=== PATIENT | male | born 1930 | race Caucasian/White ===

== ENCOUNTER 2017-08-27 13:03 | Inpatient (IN) | payer MEDICARE, BC ==
[~2017-08-27] VITALS: Ht 182.9 cm; Wt 81.3 kg
[2017-08-27 13:03] VITALS: BP 193/93; PULSE 56; RESP 16; TEMP 98.2; O2SAT 95
[~2017-08-27 13:03] MED LIST: DOCU1CAP39 PO; FERR324T4 PO; GABA600T PO; LORTA5 PO; POLY17S PO; VITA400C28 PO; VITA500T83 PO; WARF4 PO; Z.0.CPM
[2017-08-27] MEDS ORDERED: SODIUM CHLORIDE 0.9% FLUSH 10 ML FLUSH IVF PRN (13:15)
--- NOTE | 2017-08-27 13:21 | PD ---
HPI Chief Complaint: stroke alert Time Seen by Provider: 13:07 Travel History International Travel<30 days: No Contact w/Intl Traveler<30days: No Traveled to known affect area: No History of Present Illness HPI 87-year-old male brought in by ambulance as a stroke alert. According to EMS, the patient lives at [place] in the independent living side with his . At around 11:45 PM his noted that the patient had right-sided facial droop , right arm and leg weakness. She brought him back to their room, and 911 was called. EMS noted a right facial droop and right upper and lower extremity weakness, and noted that while in route his symptoms appeared to be resolving. Blood pressure was 180/100. BGL was within normal limits. Upon arrival to the emergency department the patient is awake and alert. He has a mild right facial droop. He is moving all of his extremities. He is denying any physical complaints other than numbness sensation in bilateral hands and feet. PFSH Past Medical History Arthritis: Yes Asthma: No Heart Rhythm Problems: No Cancer: No Cardiovascular Problems: Yes High Cholesterol: No Chemotherapy: No Chest Pain: No Congestive Heart Failure: No COPD: No Cerebrovascular Accident: No Diabetes: No Endocrine: No GERD: No Genitourinary: Yes (POST ANESTHESIA PROB. URINATING) Hepatitis: No Hiatal Hernia: No Immune Disorder: No Kidney Stones: No Musculoskeletal: Yes (ARTHRITIS, LEFT TKR/REMOVAL, ) Neurologic: Yes (NEUROPATHY LEGS, NORMAL PRESSURE HYDROCEPHALUS) Psychiatric: No Reproductive: No Respiratory: Yes (HX BRONCHITIS (2013)) Migraines: No Radiation Therapy: No Renal Failure: No Seizures: No Sickle Cell Disease: No Sleep Apnea: No Thyroid Disease: No Ulcer: No Past Surgical History Abdominal Surgery: Yes (APPY , ING. HERNIA REP.) AICD: No Arteriovenous Shunt: No Body Medical Devices: RIGHT HIP HARDWARE Cardiac Surgery: No Ear Surgery: No Endocrine Surgery: No Eye Surgery: Yes (JUANITO. CATARACT EXTRACT., RIGHT RETINAL REP.) Genitourinary Surgery: Yes (TURP) Gynecologic Surgery: No Insulin Pump: No Joint Replacement: Yes (RIGHT KNEE) Oral Surgery: Yes (T & A) Pacemaker: No Thoracic Surgery: No Social History Substance Use: No Allergies-Medications (Allergen,Severity, Reaction): Coded Allergies: No Known Allergies (Unverified , 10/02/14) Reported Meds & Prescriptions Reported Meds & Active Scripts Active Review of Systems Except as stated in HPI: all other systems reviewed are Neg Physical Exam Narrative GENERAL: Well-developed, well-nourished, awake, alert, GCS 15, no apparent distress. SKIN: Focused skin assessment warm/dry. HEAD: Atraumatic. Normocephalic. EYES: Pupils equal and round. No scleral icterus. No injection or drainage. ENT: Mucous membranes pink and moist. NECK: Trachea midline. No JVD. CARDIOVASCULAR: Regular rate and rhythm. No murmur appreciated. RESPIRATORY: No accessory muscle use. Clear to auscultation. Breath sounds equal bilaterally. GASTROINTESTINAL: Abdomen soft, non-tender, nondistended. Hepatic and splenic margins not palpable. MUSCULOSKELETAL: No obvious deformities. No clubbing. No cyanosis. No edema. NEUROLOGICAL: Awake and alert. Mild right facial droop, all other cranial nerves are intact. Motor grossly within normal limits. Normal speech. No focal deficit. No pronator drift. PSYCHIATRIC: Appropriate mood and affect; insight and judgment normal. Data Data Last Documented VS Vital Signs Date Time Temp Pulse Resp B/P (MAP) Pulse Ox O2 Delivery O2 Flow Rate FiO2 08/27/17 13:32 97 Room Air 08/27/17 13:03 98.2 56 16 193/93 (126) Orders Orders Electrocardiogram (08/27/17 13:07) Prothrombin Time / Inr (Pt) (08/27/17 13:07) Act Partial Throm Time (Ptt) (08/27/17 13:07) Complete Blood Count With Diff (08/27/17 13:07) Comprehensive Metabolic Panel (08/27/17 13:07) Urinalysis - C+S If Indicated (08/27/17 13:07) Ct Brain W/O Iv Contrast(Rout) (08/27/17 13:07) Chest, Single Ap (08/27/17 13:07) Ecg Monitoring (08/27/17 13:07) Iv Access Insert/Monitor (08/27/17 13:07) Oximetry (08/27/17 13:07) Sodium Chloride 0.9% Flush (Ns Flush) (08/27/17 13:15) I-Stat Creatinine (08/27/17 13:10) I-Stat Profile (08/27/17 13:10) Labs Laboratory Tests Test 08/27/17 13:10 White Blood Count 6.1 TH/MM3 Red Blood Count 3.75 MIL/MM3 Hemoglobin 12.3 GM/DL Bedside Hemoglobin 12.6 G/DL Hematocrit 36.9 % Bedside Hematocrit 37.0 % Mean Corpuscular Volume 98.4 FL Mean Corpuscular Hemoglobin 32.9 PG Mean Corpuscular Hemoglobin Concent 33.4 % Red Cell Distribution Width 13.2 % Platelet Count 184 TH/MM3 Mean Platelet Volume 8.2 FL Neutrophils (%) (Auto) 72.6 % Lymphocytes (%) (Auto) 16.6 % Monocytes (%) (Auto) 9.0 % Eosinophils (%) (Auto) 1.6 % Basophils (%) (Auto) 0.2 % Neutrophils # (Auto) 4.4 TH/MM3 Lymphocytes # (Auto) 1.0 TH/MM3 Monocytes # (Auto) 0.5 TH/MM3 Eosinophils # (Auto) 0.1 TH/MM3 Basophils # (Auto) 0.0 TH/MM3 CBC Comment DIFF FINAL Differential Comment Prothrombin Time 11.4 SEC Prothromb Time International Ratio 1.0 RATIO Activated Partial Thromboplast Time 26.8 SEC Bedside Sodium 137 MMOL/L Blood Urea Nitrogen 14 MG/DL Creatinine 0.77 MG/DL Random Glucose 105 MG/DL Total Protein 7.2 GM/DL Albumin 3.7 GM/DL Calcium Level 8.9 MG/DL Alkaline Phosphatase 60 U/L Aspartate Amino Transf (AST/SGOT) 21 U/L Alanine Aminotransferase (ALT/SGPT) 22 U/L Total Bilirubin 0.4 MG/DL Sodium Level 136 MEQ/L Potassium Level 4.2 MEQ/L Chloride Level 101 MEQ/L Carbon Dioxide Level 29.8 MEQ/L Bedside Potassium 4.3 MMOL/L Bedside Chloride 96 MMOL/L Anion Gap 5 MEQ/L Bedside Blood Urea Nitrogen 14 MG/DL Bedside Creatinine 0.8 MG/DL Estimat Glomerular Filtration Rate 95 ML/MIN Bedside Glucose 109 MG/DL [facility] Medical Decision Making Medical Screen Exam Complete: Yes Emergency Medical Condition: Yes Differential Diagnosis CVA, TIA, metabolic abnormality, ICH Sachin Hinson MD Aug 27, 2017 13:21
[2017-08-27 13:24] LABS: AUTOMATED NEUTROPHIL # 4.4 TH/MM3 (1.8-7.7); BASOPHIL % 0.2 % (0.0-2.0); EOSINOPHIL # 0.1 TH/MM3 (0-0.4); EOSINOPHIL % 1.6 % (0.0-4.0); HEMATOCRIT 36.9 % (39.0-51.0); HEMO FLAGS DIFF FINAL; I-STAT POTASSIUM 4.3 MMOL/L (3.5-4.9); LYMPH % 16.6 % (9.0-44.0); MEAN CELL VOLUME 98.4 FL (80.0-100.0); MEAN CORPUSCULAR HEMOGLOBIN 32.9 PG (27.0-34.0); MEAN CORPUSCULAR HGB CONC 33.4 % (32.0-36.0); NEUT % 72.6 % (16.0-70.0); PLATELET COUNT 184 TH/MM3 (150-450); RED BLOOD COUNT 3.75 MIL/MM3 (4.50-5.90); RED CELL DISTRIBUTION WIDTH 13.2 % (11.6-17.2); WHITE BLOOD COUNT 6.1 TH/MM3 (4.0-11.0)
[2017-08-27 13:32] VITALS: O2SAT 97
[2017-08-27 13:33] LABS: APTT (PATIENT) 26.8 SEC (24.3-30.1); PROTHROMBIN TIME - PATIENT 11.4 SEC (9.8-11.6)
--- NOTE | 2017-08-27 13:34 | RADRPT ---
EXAM DATE/TIME: 08/27/2017 13:16 [facility] COMPARISON: No previous studies available for comparison. INDICATIONS : Stroke alert; right side facial droop, slurred speech. RADIATION DOSE: 45.50 CTDIvol (mGy) This report was called by Dr. Pandey to at 1: 30 PM on 08/27/17. MEDICAL HISTORY : Hypertension. Hydrocephalus. SURGICAL HISTORY : Shunt in brain. ENCOUNTER: Initial ACUITY: 1 day PAIN SCALE: 0/10 LOCATION: cranial TECHNIQUE: Multiple contiguous axial images were obtained of the head. Using automated exposure control and adj ustment of the mA and/or kV according to patient size, radiation dose was kept as low as reasonably a chievable to obtain optimal diagnostic quality images. DICOM format image data is available electro nically for review and comparison. FINDINGS: There is no acute infarct, acute hemorrhage, midline shift or extra axial fluid collections. A right frontal ventriculostomy shunt has its tip in the expected region of the junction of the right lateral ventricle and third ventricle. The ventricles are dilated suggesting hydrocephalus or central cerebr al atrophy. Mild to moderate periventricular white matter small vessel ischemic changes are noted carolann aterally. CONCLUSION: 1. No acute infarct, acute hemorrhage, mass effect, midline shift or extra-axial fluid collections. 2. Ventriculomegaly suggesting hydrocephalus or central cerebral atrophy. 3. Mild to moderate periventricular white matter small vessel ischemic changes bilaterally. Dany Pandey MD on August 27, 2017 at 13:27 Board Certified Radiologist. This report was verified electronically.
[2017-08-27 13:40] LABS: ALT (GPT) 22 U/L (12-78); ANION GAP 5 MEQ/L (5-15); AST (GOT) 21 U/L (15-37); BICARBONATE 29.8 MEQ/L (21.0-32.0); BLOOD UREA NITROGEN 14 MG/DL (7-18); CHLORIDE 101 MEQ/L (98-107); GLOMERULAR FILTRATION RATE 95 ML/MIN (>89); POTASSIUM 4.2 MEQ/L (3.5-5.1); SODIUM (NA) 136 MEQ/L (136-145)
[2017-08-27 13:42] LABS: ALKALINE PHOSPHATASE 60 U/L (45-117); TOTAL BILIRUBIN ADULT 0.4 MG/DL (0.2-1.0)
--- NOTE | 2017-08-27 13:42 | PD ---
HPI Chief Complaint: Stroke Alert Time Seen by Provider: 13:07 Travel History International Travel<30 days: No Contact w/Intl Traveler<30days: No Traveled to known affect area: No History of Present Illness HPI 87-year-old male brought in by ambulance as a stroke alert. According to EMS, the patient lives at [place] in the independent living side with his . At around 11:45 PM his noted that the patient had right-sided facial droop , right arm and leg weakness. She brought him back to their room, and 911 was called. EMS noted a right facial droop and right upper and lower extremity weakness, and noted that while in route his symptoms appeared to be resolving. Blood pressure was 180/100. BGL was within normal limits. Upon arrival to the emergency department the patient is awake and alert. He has a mild right facial droop. He is moving all of his extremities. He is denying any physical complaints other than numbness sensation in bilateral hands and feet. PFSH Past Medical History Arthritis: Yes Asthma: No Heart Rhythm Problems: No Cancer: No Cardiovascular Problems: Yes High Cholesterol: No Chemotherapy: No Chest Pain: No Congestive Heart Failure: No COPD: No Cerebrovascular Accident: No Diabetes: No Endocrine: No GERD: No Genitourinary: Yes (POST ANESTHESIA PROB. URINATING) Hepatitis: No Hiatal Hernia: No Immune Disorder: No Kidney Stones: No Musculoskeletal: Yes (ARTHRITIS, LEFT TKR/REMOVAL, ) Neurologic: Yes (NEUROPATHY LEGS, NORMAL PRESSURE HYDROCEPHALUS) Psychiatric: No Reproductive: No Respiratory: Yes (HX BRONCHITIS (2013)) Migraines: No Radiation Therapy: No Renal Failure: No Seizures: No Sickle Cell Disease: No Sleep Apnea: No Thyroid Disease: No Ulcer: No Past Surgical History Abdominal Surgery: Yes (APPY , ING. HERNIA REP.) AICD: No Arteriovenous Shunt: No Body Medical Devices: RIGHT HIP HARDWARE Cardiac Surgery: No Ear Surgery: No Endocrine Surgery: No Eye Surgery: Yes (JUANITO. CATARACT EXTRACT., RIGHT RETINAL REP.) Genitourinary Surgery: Yes (TURP) Gynecologic Surgery: No Insulin Pump: No Joint Replacement: Yes (RIGHT KNEE) Oral Surgery: Yes (T & A) Pacemaker: No Thoracic Surgery: No Social History Tobacco Use: No (former smoker) Substance Use: No Allergies-Medications (Allergen,Severity, Reaction): Coded Allergies: No Known Allergies (Unverified , 10/02/14) Reported Meds & Prescriptions Reported Meds & Active Scripts Active Reported [Eye Drops] 1 Drop RIGHT EYE DAILY Risedronate 150 Mg Tab 150 Mg PO Q30D Gabapentin 600 Mg Tab 600 Mg PO BID Review of Systems Except as stated in HPI: all other systems reviewed are Neg Physical Exam Narrative GENERAL: Well-developed, well-nourished, awake, alert, GCS 15, no apparent distress. SKIN: Focused skin assessment warm/dry. HEAD: Atraumatic. Normocephalic. EYES: Pupils equal and round. No scleral icterus. No injection or drainage. ENT: Mucous membranes pink and moist. NECK: Trachea midline. No JVD. CARDIOVASCULAR: Regular rate and rhythm. No murmur appreciated. RESPIRATORY: No accessory muscle use. Clear to auscultation. Breath sounds equal bilaterally. GASTROINTESTINAL: Abdomen soft, non-tender, nondistended. Hepatic and splenic margins not palpable. MUSCULOSKELETAL: No obvious deformities. No clubbing. No cyanosis. No edema. NEUROLOGICAL: Awake and alert. Mild right facial droop, all other cranial nerves are intact. Motor grossly within normal limits. Normal speech. No focal deficit. No pronator drift. PSYCHIATRIC: Appropriate mood and affect; insight and judgment normal. Data Data Last Documented VS Vital Signs Date Time Temp Pulse Resp B/P (MAP) Pulse Ox O2 Delivery O2 Flow Rate FiO2 08/27/17 13:32 97 Room Air 08/27/17 13:03 98.2 56 16 193/93 (126) Orders Orders Electrocardiogram (08/27/17 13:07) Prothrombin Time / Inr (Pt) (08/27/17 13:07) Act Partial Throm Time (Ptt) (08/27/17 13:07) Complete Blood Count With Diff (08/27/17 13:07) Comprehensive Metabolic Panel (08/27/17 13:07) Urinalysis - C+S If Indicated (08/27/17 13:07) Ct Brain W/O Iv Contrast(Rout) (08/27/17 13:07) Chest, Single Ap (08/27/17 13:07) Ecg Monitoring (08/27/17 13:07) Iv Access Insert/Monitor (08/27/17 13:07) Oximetry (08/27/17 13:07) Sodium Chloride 0.9% Flush (Ns Flush) (08/27/17 13:15) I-Stat Creatinine (08/27/17 13:10) I-Stat Profile (08/27/17 13:10) Aspirin Ec (Ecotrin Ec) (08/27/17 14:00) Admit Order (Ed Use Only) (08/27/17 14:39) Labs Laboratory Tests Test 08/27/17 13:10 White Blood Count 6.1 TH/MM3 Red Blood Count 3.75 MIL/MM3 Hemoglobin 12.3 GM/DL Bedside Hemoglobin 12.6 G/DL Hematocrit 36.9 % Bedside Hematocrit 37.0 % Mean Corpuscular Volume 98.4 FL Mean Corpuscular Hemoglobin 32.9 PG Mean Corpuscular Hemoglobin Concent 33.4 % Red Cell Distribution Width 13.2 % Platelet Count 184 TH/MM3 Mean Platelet Volume 8.2 FL Neutrophils (%) (Auto) 72.6 % Lymphocytes (%) (Auto) 16.6 % Monocytes (%) (Auto) 9.0 % Eosinophils (%) (Auto) 1.6 % Basophils (%) (Auto) 0.2 % Neutrophils # (Auto) 4.4 TH/MM3 Lymphocytes # (Auto) 1.0 TH/MM3 Monocytes # (Auto) 0.5 TH/MM3 Eosinophils # (Auto) 0.1 TH/MM3 Basophils # (Auto) 0.0 TH/MM3 CBC Comment DIFF FINAL Differential Comment Prothrombin Time 11.4 SEC Prothromb Time International Ratio 1.0 RATIO Activated Partial Thromboplast Time 26.8 SEC Bedside Sodium 137 MMOL/L Blood Urea Nitrogen 14 MG/DL Creatinine 0.77 MG/DL Random Glucose 105 MG/DL Total Protein 7.2 GM/DL Albumin 3.7 GM/DL Calcium Level 8.9 MG/DL Alkaline Phosphatase 60 U/L Aspartate Amino Transf (AST/SGOT) 21 U/L Alanine Aminotransferase (ALT/SGPT) 22 U/L Total Bilirubin 0.4 MG/DL Sodium Level 136 MEQ/L Potassium Level 4.2 MEQ/L Chloride Level 101 MEQ/L Carbon Dioxide Level 29.8 MEQ/L Bedside Potassium 4.3 MMOL/L Bedside Chloride 96 MMOL/L Anion Gap 5 MEQ/L Bedside Blood Urea Nitrogen 14 MG/DL Bedside Creatinine 0.8 MG/DL Estimat Glomerular Filtration Rate 95 ML/MIN Bedside Glucose 109 MG/DL [facility] Medical Screen Exam Complete: Yes Emergency Medical Condition: Yes Differential Diagnosis CVA, TIA, metabolic abnormality, ICH Narrative Course Shortly after the patient arrived in the emergency department the patient's is at the bedside and confirms that his symptoms have significantly improved. She states that he was drooling from the right side of his mouth with right facial droop and slurring his words. He is no longer doing this. 1:10 PM: Case discussed with on-call neurologist Dr. Das. Patient is not a tPA candidate as his symptoms have improved. Initial vital signs show heart rate 56, blood pressure 193/93, pulse ox 95% on room air, oral temp of 98.2F. CBC is unremarkable. CMP is unremarkable. CT head: CONCLUSION: 1. No acute infarct, acute hemorrhage, mass effect, midline shift or extra- axial fluid collections. 2. Ventriculomegaly suggesting hydrocephalus or central cerebral atrophy. 3. Mild to moderate periventricular white matter small vessel ischemic changes bilaterally. Case again discussed with Dr. Das. Patient will be started on aspirin and admitted for further CVA/TIA workup. Case discussed with hospitalist Dr. Singh who will admit the patient to her service. Stroke Alert NIHSS NIH Stroke Scale Result: 4 NIHSS Time Completed: 13:00 Thrombolytic Contraindications Contraindications Comment: Resolving symptoms Diagnosis Diagnosis: Primary Impression: TIA (transient ischemic attack) Qualified Codes: G45.9 - Transient cerebral ischemic attack, unspecified Admitting Physician Requests: Admit Sachin Hinson MD Aug 27, 2017 13:42
--- NOTE | 2017-08-27 13:55 | RADRPT ---
EXAM DATE/TIME: 08/27/2017 13:30 [facility] COMPARISON: CHEST SINGLE AP, July 25, 2014, 13:06. INDICATIONS : Stroke alert. Status post central line placement. Right sided facial droop and slurred speech. MEDICAL HISTORY : Hypertension. Hydrocephalus. SURGICAL HISTORY : Shunt in brain. ENCOUNTER: Initial ACUITY: 1 day PAIN SCORE: 0/10 LOCATION: Bilateral chest FINDINGS: A single view of the chest demonstrates the lungs to be symmetrically aerated without evidence of mas s, infiltrate or effusion. The cardiomediastinal contours are unremarkable. Osseous structures are intact. There is been interval placement of right internal jugular central venous line with the tip p rojected over the superior vena cava. There is no pneumothorax. There is mild motion artifact. Athero sclerotic changes are again noted in the aorta. CONCLUSION: 1. No placement of right internal jugular central venous line. 2. Motion artifact with no acute cardiopulmonary disease. Kris Pelayo MD on August 27, 2017 at 13:53 Board Certified Radiologist. This report was verified electronically.
[2017-08-27] MEDS ORDERED: GABA600T PO (13:57)
[2017-08-27] MEDS ORDERED: RISE1TAB13 PO (13:57)
[2017-08-27] MEDS ORDERED: EYEDRO RIGHT EYE (13:57)
[2017-08-27] MEDS ORDERED: ASPIRIN EC 325 MG TABEC PO ONE (14:00)
[2017-08-27] MEDS ORDERED: ENALAPRILAT 1.25 MG/ML VIAL IV PUSH PRN (14:45)
[2017-08-27] MEDS ORDERED: GLUCAGON 1 MG/ML VIAL OTHER PRN (14:45)
[2017-08-27] MEDS ORDERED: DEXTROSE 50% IN WATER 50 ML VIAL(D50) IV PUSH PRN (14:45)
[2017-08-27] MEDS ORDERED: SODIUM CHLORIDE 0.9% FLUSH 5 ML FLUSH IV FLUSH PRN (14:45)
[2017-08-27 14:48] VITALS: O2SAT 97
--- NOTE | 2017-08-27 14:59 | HHI.HP ---
[facility] Brian Linares M.D. Admission Diagnosis TIA Diagnoses: Chief Complaint: Weakness Travel History International Travel<30 Days: No Contact w/Intl Traveler <30 Da: No Traveled to Known Affected Are: No History of Present Illness Written by Nacho Lambert, acting as scribe for Dr. Singh on 08/27/17 at 14:59. 87-year-old male with a past medical history of BPH, osteoporosis who presented as a stroke alert. The patient is an extremely poor historian and much of the history is obtained from the medical record and ED communication. The patient states that he woke up feeling poorly this morning. He felt like his legs were weak. He can't recall which leg was weaker. He also had some weakness in his arms, can't recall which was weaker. He is complaining of numbness and tingling in his hands and feet. He denies any vision changes or headache. He is having some urinary incontinence, which has been a problem for him before. The patient denies any chest pain, shortness of breath, nausea, vomiting. He repeatedly states that the only medicine he takes is "ibupentin", and not sure what he takes for. Per report, around 11:45 PM his noted that the patient had right-sided facial droop, right arm and leg weakness. EMS noted a right facial droop and right upper and lower extremity weakness, and noted that while in route his symptoms appeared to be resolving. His blood pressure has been significantly elevated. His mild facial droop and right-sided weakness has essentially resolved during his time in the ED. His head CT did show ventriculomegaly suggesting hydrocephalus, but no acute infarct, hemorrhage, mass effect. ED physician spoke with neurology who recommended against TPA due to improvement in symptoms, aspirin, admission for further workup. Review of Systems ROS Limitations: Poor Historian Except as stated in HPI: all other systems reviewed are Neg Past Family Social History Past Medical History Normal pressure hydrocephalus Osteoporosis Past Surgical History PUTTY MIXER shunt placed and managed at [facility] Left knee TKA with hardware placement and subsequent redo surgery Right hip ORIF after fracture Bilateral inguinal hernia surgery Right TKA Reported Medications Reported Meds & Active Scripts Active Reported [Eye Drops] 1 Drop RIGHT EYE DAILY Risedronate 150 Mg Tab 150 Mg PO Q30D Gabapentin 600 Mg Tab 600 Mg PO BID Allergies: Coded Allergies: No Known Allergies (Unverified , 10/02/14) Active Ordered Medications Current Medications Medications (Trade) Dose Ordered Sig/Cary Route Start Time Stop Time Status Last Admin (NS Flush) 2 ml BID IV FLUSH 08/27/17 21:00 (NS Flush) 2 ml UNSCH PRN IV FLUSH 08/27/17 14:45 Sodium Chloride 1,000 ml @ 70 mls/hr [id number] IV 08/27/17 14:39 08/27/17 15:07 (Vasotec Inj) 1.25 mg Q4H PRN IV PUSH 08/27/17 14:45 (Aspirin Chew) 81 mg DAILY PO 08/28/17 09:00 (Lipitor) 10 mg HS PO 08/27/17 21:00 (NovoLOG SUPPLEMENTAL SCALE) 1 ACHS SQ 08/27/17 17:00 (D50w (Vial) Inj) 50 ml UNSCH PRN IV PUSH 08/27/17 14:45 (Glucagon Inj) 1 mg UNSCH PRN OTHER 08/27/17 14:45 (Lovenox Inj) 40 mg Q24H SQ 08/27/17 15:00 08/27/17 15:07 Family History Family history of atherosclerotic heart disease and carcinoma Social History Former tobacco use Lives in independent living facility with his Physical Exam Vital Signs Vital Signs Date Time Temp Pulse Resp B/P (MAP) Pulse Ox O2 Delivery O2 Flow Rate FiO2 08/27/17 14:48 97 21 08/27/17 13:32 97 Room Air 08/27/17 13:03 98.2 56 16 193/93 (126) 95 Physical Exam GENERAL: Well-developed well-nourished. In no acute distress. SKIN: Warm and dry. No lesions noted. HEENT: Normocephalic. Pupils equal and round. EOMs intact. Mucous membranes pink and moist. CARDIOVASCULAR: Regular rate and rhythm. No murmur appreciated. RESPIRATORY: No accessory muscle use. Clear to auscultation. Breath sounds equal bilaterally. GASTROINTESTINAL: Abdomen soft, non-tender, nondistended. Bowel sounds x4. MUSCULOSKELETAL: No obvious deformities. No clubbing or cyanosis. No edema. NEUROLOGICAL: Awake and alert.Moves upper and lower extremities spontaneously. Normal speech. Subjectively decreased sensation in the extremities. Strength 5 /5. No facial asymmetry. PSYCHIATRIC: Appropriate mood and affect; insight and judgment poor. Laboratory Laboratory Tests Test 08/27/17 13:10 White Blood Count 6.1 Red Blood Count 3.75 Hemoglobin 12.3 Bedside Hemoglobin 12.6 Hematocrit 36.9 Bedside Hematocrit 37.0 Mean Corpuscular Volume 98.4 Mean Corpuscular Hemoglobin 32.9 Mean Corpuscular Hemoglobin Concent 33.4 Red Cell Distribution Width 13.2 Platelet Count 184 Mean Platelet Volume 8.2 Neutrophils (%) (Auto) 72.6 Lymphocytes (%) (Auto) 16.6 Monocytes (%) (Auto) 9.0 Eosinophils (%) (Auto) 1.6 Basophils (%) (Auto) 0.2 Neutrophils # (Auto) 4.4 Lymphocytes # (Auto) 1.0 Monocytes # (Auto) 0.5 Eosinophils # (Auto) 0.1 Basophils # (Auto) 0.0 CBC Comment DIFF FINAL Differential Comment Prothrombin Time 11.4 Prothromb Time International Ratio 1.0 Activated Partial Thromboplast Time 26.8 Bedside Sodium 137 Blood Urea Nitrogen 14 Creatinine 0.77 Random Glucose 105 Total Protein 7.2 Albumin 3.7 Calcium Level 8.9 Alkaline Phosphatase 60 Aspartate Amino Transf (AST/SGOT) 21 Alanine Aminotransferase (ALT/SGPT) 22 Total Bilirubin 0.4 Sodium Level 136 Potassium Level 4.2 Chloride Level 101 Carbon Dioxide Level 29.8 Bedside Potassium 4.3 Bedside Chloride 96 Anion Gap 5 Bedside Blood Urea Nitrogen 14 Bedside Creatinine 0.8 Estimat Glomerular Filtration Rate 95 Bedside Glucose 109 Result Diagram: 08/27/17 1310 08/27/17 1310 Imaging Last Impressions Head CT 08/27/17 1307 Signed Impressions: Service Date/Time: Sunday, August 27, 2017 13:16 - CONCLUSION: 1. No acute infarct, acute hemorrhage, mass effect, midline shift or extra-axial fluid collections. 2. Ventriculomegaly suggesting hydrocephalus or central cerebral atrophy. 3. Mild to moderate periventricular white matter small vessel ischemic changes bilaterally. Dany Pandey MD Chest X-Ray 08/27/17 1307 Signed Impressions: Service Date/Time: Sunday, August 27, 2017 13:30 - CONCLUSION: 1. No placement of right internal jugular central venous line. 2. Motion artifact with no acute cardiopulmonary disease. MD Sondra Mora VTE Risk Assessment Caprini VTE Risk Assessment: Mod/High Risk (score >= 2) Caprini Risk Assessment Model Point Value = 1 Point Value = 2 Point Value = 3 Point Value = 5 Age 41-60 Minor surgery BMI > 25 kg/m2 Swollen legs Varicose veins or History of unexplained or recurrent spontaneous Oral contraceptives or hormone replacement Sepsis (< 1 month) Serious lung disease, including pneumonia (< 1 month) Abnormal pulmonary function Acute myocardial infarction Congestive heart failure (< 1 month) History of inflammatory bowel disease Medical patient at bed rest Age 61-74 Arthroscopic surgery Major open surgery (> 45 min) Laparoscopic surgery (> 45 min) Malignancy Confined to bed (> 72 hours) Immobilizing plaster cast Central venous access Age >= 75 History of VTE Family history of VTE Factor V Leiden Prothrombin [id number] Lupus anticoagulant Anticardiolipin antibodies Elevated serum homocysteine Heparin-induced thrombocytopenia Other congenital or acquired thrombophilia Stroke (< 1 month) Elective arthroplasty Hip, pelvis, or leg fracture Acute spinal cord injury (< 1 month) Prophylaxis Regimen Total Risk Factor Score Risk Level Prophylaxis Regimen 0-1 Low Early ambulation 2 Moderate Order ONE of the following: *Sequential Compression Device (SCD) *Heparin 5000 units SQ BID 3-4 Higher Order ONE of the following medications: *Heparin 5000 units SQ TID *Enoxaparin/Lovenox 40 mg SQ daily (WT < 150 kg, CrCl > 30 mL/min) *Enoxaparin/Lovenox 30 mg SQ daily (WT < 150 kg, CrCl > 10-29 mL/min) *Enoxaparin/Lovenox 30 mg SQ BID (WT < 150 kg, CrCl > 30 mL/min) AND/OR *Sequential Compression Device (SCD) 5 or more Highest Order ONE of the following medications: *Heparin 5000 units SQ TID (Preferred with Epidurals) *Enoxaparin/Lovenox 40 mg SQ daily (WT < 150 kg, CrCl > 30 mL/min) *Enoxaparin/Lovenox 30 mg SQ daily (WT < 150 kg, CrCl > 10-29 mL/min) *Enoxaparin/Lovenox 30 mg SQ BID (WT < 150 kg, CrCl > 30 mL/min) AND *Sequential Compression Device (SCD) Assessment and Plan Assessment and Plan 87-year-old male with a past medical history of BPH, osteoporosis who presented as a stroke alert Weakness and paresthesias: TIA and shunt malfunction are in the differential. Review: Head CT with no acute process, ventriculomegaly suggesting hydrocephalus , periventricular white matter small vessel ischemic changes bilaterally. -Standard stroke workup including stroke scale, Accu checks, telemetry monitoring, swallow eval, permissive hypertension, IVF -Check carotid ultrasound and echocardiogram. -Neurology consulted, defer further imaging to them due to PUTTY MIXER shunt in place -Check lipid profile and hemoglobin A1c -PT/OT/ST -Received aspirin 325 mg in the ED, continue 81 mg aspirin daily Hypertension: BP is elevated. Permissive hypertension as above. -IV Vasotec as needed Urinary incontinence: It seems this is a chronic problem, although could be exacerbated by shunt malfunction. -Check UA DVT prophylaxis: SCDs, Lovenox This note was transcribed by SHONDA Wilson . I, Dr. Desire Singh personally performed the history, physical exam, and medical decision making; and confirmed the accuracy of the information in the transcribed note. Authenticated by Dr. Desire Singh on 08/27/17 at 14:59. Discussed Condition With Patient, ED staff Nacho Lambert Aug 27, 2017 14:59 Desire Singh MD Aug 27, 2017 15:48
[2017-08-27 15:00] VITALS: BP 170/85; PULSE 54; RESP 17; O2SAT 98
[2017-08-27] MEDS: ENOXAPARIN SODIUM 40 MG/0.4 ML SYRINGE SQ SCH (15:07)
[2017-08-27] MEDS: SODIUM CHLOR 0.9% 1000 ML INJ 1,000 ML IV SCH (15:07)
[2017-08-27 15:25] LABS: BLOOD, URINE NEG (NEG); GLUCOSE,URINE NEG (NEG); KETONE, URINE NEG (NEG); NITRITE,URINE NEG (NEG); PH, URINE 7.5 (5.0-8.5); URINE COLOR COLORLESS (YELLW/STRAW)
[2017-08-27 15:42] LABS: COMMENT (UR) CATH-CULT NOT IND; CULTURE IF INDICATED CATH CULTURE NOT IND
[2017-08-27 16:56] VITALS: BP 171/80
--- NOTE | 2017-08-27 17:23 | RADRPT ---
EXAM DATE/TIME: 08/27/2017 16:26 [facility] COMPARISON: No previous studies available for comparison. INDICATIONS : Cerebrovascular accident. MEDICAL HISTORY : Hypertension. Hearing aids. Dentures. Neuropathy. Bronchitis. Arthritis. SURGICAL HISTORY : Tonsillectomy. Appendectomy. Bilateral cataract surgery. Adenoidectomy. Hernia repair. Circumcision . Neurogenic bladder. Bilateral knee replacement. ENCOUNTER: Initial ACUITY: 1 day PAIN SCORE: 0/10 LOCATION: Bilateral neck PEAK SYSTOLIC VELOCITIES (cm/sec): ICA/CCA RATIO: Right: 1.6 Left: 1.6 ICA: Right: 81 Left: 116 CCA: Right: 52 Left: 71 ECA: Right: 71 Left: 67 VERTEBRAL: Right: 58 antegrade Left: 39 antegrade Elevated flow velocities and ICA/CCA ratios have been found to correlate with increased degrees of vessel stenosis, calculated as percentage of diameter relative to a normal segment of distal ICA/CCA FINDINGS: RIGHT CAROTID: There is mild shadowing plaque in the common carotid artery and carotid bulb. No widening of the mckayla ocity spectrum. LEFT CAROTID: There is mild shadowing in the common carotid artery. There is widening of the velocities back from in the proximal internal carotid artery with some negative velocity components during systole and pea k systolic velocity 116 cm/sec. No widening of the velocity spectrum of the distal internal carotid VERTEBRAL ARTERIES: Antegrade flow is seen in both vertebral arteries. CONCLUSION: Bilateral common and internal carotid artery plaque formation with hemodynamic profile characteristic of less than 50% stenosis. Jeison Elizondo MD on TheAugust 27, 2017 at 17:18 Board Certified Radiologist. This report was verified electronically.
[2017-08-27] MEDS: INSULIN ASPART SUPPLEMENTAL SCALE SQ SCH ×2 (18:12→21:00)
[2017-08-27 20:00] VITALS: BP 163/86; PULSE 92; RESP 18; TEMP 97; O2SAT 92
[2017-08-27] MEDS: SODIUM CHLORIDE 0.9% FLUSH 5 ML FLUSH IV FLUSH SCH (21:00)
[2017-08-27] MEDS: ATORVASTATIN 10 MG TAB PO SCH (22:51)
[2017-08-28] VITALS (11 sets, daily range): BP systolic 159–185; BP diastolic 81–90; PULSE 52–80; RESP 18–20; TEMP 97–98.7; O2SAT 92–96
[2017-08-28 04:15] LABS: HDL CHOLESTEROL 85.4 MG/DL (40.0-60.0)
[2017-08-28] MEDS: SODIUM CHLOR 0.9% 1000 ML INJ 1,000 ML IV SCH ×2 (04:57→18:08)
[2017-08-28] MEDS: ASPIRIN 81 MG CHEW TAB PO SCH (08:06)
[2017-08-28] MEDS: SODIUM CHLORIDE 0.9% FLUSH 5 ML FLUSH IV FLUSH SCH ×2 (08:06→19:49)
[2017-08-28] MEDS: INSULIN ASPART SUPPLEMENTAL SCALE SQ SCH ×4 (08:09→19:37)
[2017-08-28 09:53] LABS: HEMOGLOBIN A1a 0.9 %; HEMOGLOBIN A1b 1.8 %; HEMOGLOBIN Ao 85.9 %; HEMOGLOBIN LA1C 1.8 %; HEMOGLOBIN P3 3.6 %
[2017-08-28 09:59] LABS: BICARBONATE 22.9 MEQ/L (21.0-32.0); POTASSIUM 3.7 MEQ/L (3.5-5.1)
--- NOTE | 2017-08-28 11:08 | HHI.PR ---
Subjective Remarks Follow up TIA, weakness. Patient states that he feels better today. He does still feel somewhat weak. Denies headache, vision changes, chest pain, dyspnea. The patient reports paresthesias in hands and feet, which he attributes to chronic neuropathy. Objective Vitals Vital Signs Date Time Temp Pulse Resp B/P (MAP) Pulse Ox O2 Delivery O2 Flow Rate FiO2 08/28/17 08:31 98.2 68 20 185/83 (117) 95 08/28/17 04:30 97.4 62 20 174/90 (118) 96 08/28/17 01:43 60 08/28/17 01:03 95 08/28/17 00:00 98.7 58 20 168/81 (110) 96 08/27/17 20:00 97.0 92 18 163/86 (111) 92 08/27/17 16:56 60 17 171/80 (110) 97 08/27/17 15:12 18 97 Room Air 08/27/17 15:00 54 17 170/85 (113) 98 Room Air 08/27/17 14:48 97 21 08/27/17 13:32 97 Room Air 08/27/17 13:03 98.2 56 16 193/93 (126) 95 I/O 08/27/17 08/27/17 08/27/17 08/28/17 08/28/17 08/28/17 07:00 15:00 23:00 07:00 15:00 23:00 Intake Total 552 ml 1000 ml Output Total 850 ml 150 ml Balance -298 ml 1000 ml -150 ml Intake IV Total 552 ml 1000 ml Output Urine Total 850 ml 150 ml # Voids 1 1 Result Diagram: 08/27/17 1310 08/28/17 0333 Imaging Last Impressions Head CT 08/27/17 1307 Signed Impressions: Service Date/Time: Sunday, August 27, 2017 13:16 - CONCLUSION: 1. No acute infarct, acute hemorrhage, mass effect, midline shift or extra-axial fluid collections. 2. Ventriculomegaly suggesting hydrocephalus or central cerebral atrophy. 3. Mild to moderate periventricular white matter small vessel ischemic changes bilaterally. Dany Pandey MD Chest X-Ray 08/27/17 1307 Signed Impressions: Service Date/Time: Sunday, August 27, 2017 13:30 - CONCLUSION: 1. No placement of right internal jugular central venous line. 2. Motion artifact with no acute cardiopulmonary disease. Kris Pelayo MD Carotid Artery Ultrasound 08/27/17 0000 Signed Impressions: Service Date/Time: Sunday, August 27, 2017 16:26 - CONCLUSION: Bilateral common and internal carotid artery plaque formation with hemodynamic profile characteristic of less than 50%% stenosis. Jeison Elizondo MD Objective Remarks General: Elderly male in no acute distress. Heart: Regular rate and rhythm. No murmur. Lungs: Clear to auscultation bilaterally. No wheezes, rales, or rhonchi. Breathing is nonlabored. Abdomen: Soft, nontender, nondistended. Extremities: No lower extremity edema. Psych: Alert and oriented. Procedures None Urinary Catheter: No Vascular Central Line Catheter: No A/P Assessment and Plan 1. Generalized weakness: PT/OT eval. 2. Apparent TIA: Patient reportedly had facial droop and weakness. This has resolved. Neurology consultation is pending. PT/OT/ST. Continue aspirin. Carotid artery ultrasound is negative. Echocardiogram ordered. 3. Normal pressure hydrocephalus: Patient has DENTAL HYGIENIST shunt in place. Neurology consult pending. 4. Hypertension: Allow permissive hypertension. IV Vasotec as needed. 5. Urinary incontinence: Chronic. 6. DVT prophylaxis: SCDs, Lovenox. Discharge Planning When cleared by neurology. Brian Mandujano MD Aug 28, 2017 11:08
--- NOTE | 2017-08-28 12:57 | MB ---
cc: BISHOP DRAKE M.D. DATE OF CONSULTATION: 08/28/2017 REASON FOR CONSULTATION: Stroke versus TIA. DATE OF : 1930, 87 years old. HISTORY OF PRESENT ILLNESS: This is an 87-year-old male with baseline history of dementia, NPH, has a CLINICAL ADMINISTRATIVE COORDINATOR shunt, osteoporosis, BPH. He comes in for possible stroke. He woke up feeling poor in the morning. His legs were weak. He had some weakness in his arms, he could not recall which side was weaker, some numbness and tingling in the hands and feet. He had some urinary incontinence which has been a problem in the past for him, however, his symptoms have now resolved. He is lying in bed. He is not offering any complaints, pleasantly demented. Apparently per his , she stated that he had some facial droop and right-sided weakness, however, symptoms resolved in the ED, hence he was not a candidate for TPA. PAST MEDICAL HISTORY: As stated. HOME MEDICATIONS: 1. Risedronate. 2. Gabapentin. 3. Eye drops. ALLERGIES None reported. FAMILY HISTORY: Family history of heart disease. SOCIAL HISTORY Ex-smoker. Lives in independent living with his . PHYSICAL EXAMINATION: Vital signs: Temperature is 98.2, pulse 52, respiratory rate 20, blood pressure 185/83. Neck is supple. Heart: Regular. Neurologic: He is awake and alert. He knows he is at [facility]. Speech is normal. Pupils reactive. His face is symmetrical. Motor melgar, he has chronic arthritic changes in his hands. I do not see any drift or leg lag. DTRs a 1+. Toes, he withdraws. Cerebellar is intact. Gait is withheld. PT to assess. LABORATORY DATA: Labs are reviewed. Cholesterol is 237, LDL 116, HDL 85.4, triglycerides 176, TSH 2.350. Urine is unremarkable. IMAGING STUDIES: CT of the head shows no acute infarct, ventriculomegaly. There is a shunt in place. Some what matter changes. Carotid ultrasound shows some bilateral common and internal carotid artery plaque, less than 50%. IMPRESSION: An 87-year-old man with what sounds like a possible TIA-like event. RECOMMENDATIONS: Recommend at this point in time are to go ahead and complete his workup. Will go ahead and get, if not done so, an echo. Will get him out of bed with physical therapy. Monitor his heart rate, make sure he is in sinus rhythm. Place him on antiplatelet therapy at least a baby aspirin daily. Continue his statin and if stable can be discharged back to assisted living. MD BETTY Canchola/EMMANUEL /11:46 AM /12:46 PM
[2017-08-28] MEDS: ENOXAPARIN SODIUM 40 MG/0.4 ML SYRINGE SQ SCH (15:18)
[2017-08-28] MEDS: ATORVASTATIN 10 MG TAB PO SCH (19:48)
[2017-08-28] MEDS: GABAPENTIN 300 MG CAP PO SCH (19:48)
--- NOTE | 2017-08-28 20:41 | EKG ---
Date Performed: 08/28/2017 Time Performed: 03:12:22 PTAGE: 87 years EKG: Sinus rhythm with PAC(s) Left anterior fascicular block Lateral ST-T changes are nonspecific Borderline ECG NO PREVIOUS TRACING DOCTOR: Suzie Crockett Interpretating Date/Time 08/28/2017 20:38:56
--- NOTE | 2017-08-28 20:53 | EKG ---
Date Performed: 08/27/2017 Time Performed: 13:46:59 PTAGE: 87 years EKG: SINUS BRADYCARDIA WITH OCCASIONAL SUPRAVENTRICULAR PREMATURE COMPLEXES LEFT ANTERIOR FASCIC ULAR BLOCK POSSIBLE LATERAL MYOCARDIAL INFARCTION ABNORMAL ECG PREVIOUS TRACING : 10/03/2014 16.23 DOCTOR: Suzie Crockett Interpretating Date/Time 08/28/2017 20:47:52
[2017-08-29] VITALS (7 sets, daily range): BP systolic 146–166; BP diastolic 77–80; PULSE 50–87; RESP 16–20; TEMP 97.1–98; O2SAT 96–97
[2017-08-29] MEDS: GABAPENTIN 300 MG CAP PO SCH (09:37)
[2017-08-29] MEDS: ASPIRIN 81 MG CHEW TAB PO SCH (09:38)
--- NOTE | 2017-08-29 09:55 | HHI.PR ---
Subjective Remarks Follow up TIA. Patient states that he feels good today. Hopes to be able to go home. Denies headache, chest pain, dyspnea. Objective Vitals Vital Signs Date Time Temp Pulse Resp B/P (MAP) Pulse Ox O2 Delivery O2 Flow Rate FiO2 08/29/17 08:00 98.0 56 16 166/80 (108) 97 08/29/17 05:40 97.1 53 20 148/80 (102) 97 08/29/17 01:36 87 08/29/17 00:00 97.5 60 18 162/80 (107) 96 08/28/17 20:40 97.0 80 18 172/85 (114) 92 08/28/17 17:57 96 21 08/28/17 16:12 98.6 62 20 159/83 (108) 96 08/28/17 13:17 96 08/28/17 11:56 98.3 63 20 173/84 (113) 96 08/28/17 11:13 52 I/O 08/28/17 08/28/17 08/28/17 08/29/17 08/29/17 08/29/17 07:00 15:00 23:00 07:00 15:00 23:00 Intake Total 1000 ml 2668 ml 883 ml Output Total 150 ml 800 ml 1025 ml Balance 1000 ml -150 ml 1868 ml -142 ml Intake Oral 660 ml IV Total 1000 ml 2008 ml 883 ml Output Urine Total 150 ml 800 ml 1025 ml # Voids 1 # Bowel Movements 2 Result Diagram: 08/27/17 1310 08/28/17 0333 Imaging Last Impressions Head CT 08/27/17 1307 Signed Impressions: Service Date/Time: Sunday, August 27, 2017 13:16 - CONCLUSION: 1. No acute infarct, acute hemorrhage, mass effect, midline shift or extra-axial fluid collections. 2. Ventriculomegaly suggesting hydrocephalus or central cerebral atrophy. 3. Mild to moderate periventricular white matter small vessel ischemic changes bilaterally. Dany Pandey MD Chest X-Ray 08/27/17 1307 Signed Impressions: Service Date/Time: Sunday, August 27, 2017 13:30 - CONCLUSION: 1. No placement of right internal jugular central venous line. 2. Motion artifact with no acute cardiopulmonary disease. Kris Pelayo MD Carotid Artery Ultrasound 08/27/17 0000 Signed Impressions: Service Date/Time: Sunday, August 27, 2017 16:26 - CONCLUSION: Bilateral common and internal carotid artery plaque formation with hemodynamic profile characteristic of less than 50%% stenosis. Jeison Elizondo MD Objective Remarks General: Elderly male in no acute distress. Heart: Regular rate and rhythm. No murmur. Lungs: Clear to auscultation bilaterally. No wheezes, rales, or rhonchi. Breathing is nonlabored. Abdomen: Soft, nontender, nondistended. Extremities: No lower extremity edema. Psych: Alert and oriented. Procedures None Urinary Catheter: No Vascular Central Line Catheter: No A/P Assessment and Plan 1. Generalized weakness: Continue PT/OT. 2. Apparent TIA: Patient reportedly had facial droop and weakness. This has resolved. Appreciate neurology recommendations. PT/OT/ST. Continue aspirin. Carotid artery ultrasound is negative. Echocardiogram ordered. 3. Normal pressure hydrocephalus: Patient has CALLISTHENICS INSTRUCTOR shunt in place. Follow up as scheduled at [facility] on 09/05. 4. Hypertension: Allow permissive hypertension. IV Vasotec as needed. 5. Urinary incontinence: Chronic. 6. DVT prophylaxis: SCDs, Lovenox. Discharge Planning Possible discharge home today pending echocardiogram. Patient has follow-up appointment scheduled for 09/05/17 at [facility] with neurology and neurosurgery. Brian Mandujano MD Aug 29, 2017 09:55
--- NOTE | 2017-08-29 10:42 | HHI.FF ---
Face to Face Verification Diagnosis: (1) TIA (transient ischemic attack) (2) Hypertension (3) Normal pressure hydrocephalus Physical Therapy Order: Evaluate and Treat Occupational Therapy Order: Evaluate and Treat I have seen patient Francisco Espinoza on 08/29/17. My clinical findings support the need for the requested home health care services because: High risk of falls I certify that my clinical findings support that this patient is homebound because: Unsteady gait/balance Brian Mandujano MD Aug 29, 2017 10:42
[2017-08-29] MEDS: ENOXAPARIN SODIUM 40 MG/0.4 ML SYRINGE SQ SCH (14:15)
[2017-08-29] MEDS ORDERED: LIPI10TA PO (14:31)
[2017-08-29] MEDS ORDERED: ASPI81CH25 PO (14:31)
--- NOTE | 2017-08-29 15:37 | ECHRPT ---
Indication: CVA/TIA CONCLUSIONS Normal left ventricular size. Wall thickness is normal. The left ventricular systolic function is low normal with an estimated ejection fraction in the rang e of 50- 55%. The left atrial size is mildly dilated. Mild mitral valve regurgitation. There is mild tricuspid valve regurgitation. The estimated pulmonary arterial pressure is 29.5 mmHg. BP: 185 / 83 HR: Rhythm: Sinus MEASUREMENTS (Male / Female) Normal Values Technical Quality:Technically difficult study 2D ECHO LV Diastolic Diameter PLAX 3.2 cm 4.2 - 5.9 / 3.9 - 5.3 cm LV Systolic Diameter PLAX 2.5 cm IVS Diastolic Thickness 0.8 cm 0.6 - 1.0 / 0.6 - 0.9 cm LVPW Diastolic Thickness 0.8 cm 0.6 - 1.0 / 0.6 - 0.9 cm LV Relative Wall Thickness 0.5 LVOT Diameter 1.8 cm Aortic Root Diameter 2.1 cm DOPPLER AV Peak Velocity 149.0 cm/s AV Peak Gradient 8.9 mmHg AV Mean Gradient 5.0 mmHg AV Velocity Time Integral 33.4 cm LVOT Peak Velocity 103.0 cm/s LVOT Peak Gradient 4.2 mmHg LVOT Velocity Time Integral 23.7 cm AV Area Cont Eq vti 1.8 cm AV Area Cont Eq pk 1.8 cm Mitral E Point Velocity 59.7 cm/s Mitral A Point Velocity 88.8 cm/s Mitral E to A Ratio 0.7 LV E' Lateral Velocity 4.8 cm/s Mitral E to LV E' Lateral Ratio 12.5 LV E' Septal Velocity 5.1 cm/s Mitral E to LV E' Septal Ratio 11.8 TR Peak Velocity 221.0 cm/s TR Peak Gradient 19.5 mmHg Right Atrial Pressure 10.0 mmHg Pulmonary Artery Systolic Pressu 29.5 mmHg Right Ventricular Systolic Press 29.5 mmHg PV Peak Velocity 70.7 cm/s PV Peak Gradient 2.0 mmHg FINDINGS LEFT VENTRICLE Normal left ventricular size. Wall thickness is normal. The left ventricular systolic function is low normal with an estimated ejection fraction in the rang e of 50- 55%. RIGHT VENTRICLE Normal right ventricular size and systolic function. LEFT ATRIUM The left atrial size is mildly dilated. RIGHT ATRIUM The right atrial size is normal. ATRIAL SEPTUM Normal atrial septal thickness without atrial level shunting by limited color doppler interrogation. AORTA The aortic root and proximal ascending aorta are normal in size on limited imaging. MITRAL VALVE Mild mitral valve regurgitation. AORTIC VALVE Trileaflet aortic valve. No aortic valve stenosis or regurgitation. TRICUSPID VALVE There is mild tricuspid valve regurgitation. The estimated pulmonary arterial pressure is 29.5 mmHg. PULMONARY VALVE No pulmonary valve regurgitation or stenosis. VESSELS The inferior vena cava is normal in size. PERICARDIUM No pericardial effusion. Tio Graham MD (Electronically Signed) Final Date:29 August 2017 15:36
--- NOTE | 2017-08-29 15:54 | HHI.DS ---
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 The patient is an extremely poor historian and much of the history is obtained from the medical record and ED communication. The patient states that he woke up feeling poorly this morning. He felt like his legs were weak. He can't recall which leg was weaker. He also had some weakness in his arms, can't recall which was weaker. He is complaining of numbness and tingling in his hands and feet. He denies any vision changes or headache. He is having some urinary incontinence, which has been a problem for him before. The patient denies any chest pain, shortness of breath, nausea, vomiting. He repeatedly states that the only medicine he takes is "ibupentin", and not sure what he takes for. Per report, around 11:45 PM his noted that the patient had right-sided facial droop, right arm and leg weakness. EMS noted a right facial droop and right upper and lower extremity weakness, and noted that while in route his symptoms appeared to be resolving. His blood pressure has been significantly elevated. His mild facial droop and right-sided weakness has essentially resolved during his time in the ED. His head CT did show ventriculomegaly suggesting hydrocephalus, but no acute infarct, hemorrhage, mass effect. ED physician spoke with neurology who recommended against TPA due to improvement in symptoms, aspirin, admission for further workup. CBC/BMP: 08/27/17 1310 08/28/17 0333 Significant Findings Laboratory Tests Test 08/27/17 13:10 08/27/17 15:15 08/28/17 03:33 Red Blood Count 3.75 MIL/MM3 (4.50-5.90) Hemoglobin 12.3 GM/DL (13.0-17.0) Hematocrit 36.9 % (39.0-51.0) Bedside Hematocrit 37.0 % (38.0-51.0) Neutrophils (%) (Auto) 72.6 % (16.0-70.0) Monocytes (%) (Auto) 9.0 % (0.0-8.0) Bedside Sodium 137 MMOL/L (138-146) Bedside Chloride 96 MMOL/L (98-109) Bedside Glucose 109 MG/DL (60-95) Troponin I LESS THAN 0.02 NG/ML Triglycerides Level 176 MG/DL (42-150) Cholesterol Level 237 MG/DL (120-200) LDL Cholesterol 116 MG/DL (0-99) HDL Cholesterol 85.4 MG/DL (40.0-60.0) Imaging Last Impressions Head CT 08/27/17 1307 Signed Impressions: Service Date/Time: Sunday, August 27, 2017 13:16 - CONCLUSION: 1. No acute infarct, acute hemorrhage, mass effect, midline shift or extra-axial fluid collections. 2. Ventriculomegaly suggesting hydrocephalus or central cerebral atrophy. 3. Mild to moderate periventricular white matter small vessel ischemic changes bilaterally. Dany Pandey MD Chest X-Ray 08/27/17 1307 Signed Impressions: Service Date/Time: Sunday, August 27, 2017 13:30 - CONCLUSION: 1. No placement of right internal jugular central venous line. 2. Motion artifact with no acute cardiopulmonary disease. Kris Pelayo MD Carotid Artery Ultrasound 08/27/17 0000 Signed Impressions: Service Date/Time: Sunday, August 27, 2017 16:26 - CONCLUSION: Bilateral common and internal carotid artery plaque formation with hemodynamic profile characteristic of less than 50%% stenosis. Jeison Elizondo MD PE at Discharge General: Elderly male in no acute distress. Heart: Regular rate and rhythm. No murmur. Lungs: Clear to auscultation bilaterally. No wheezes, rales, or rhonchi. Breathing is nonlabored. Abdomen: Soft, nontender, nondistended. Extremities: No lower extremity edema. Psych: Alert and oriented. Hospital Course The patient was admitted for further management of weakness, paresthesias, facial droop. Symptoms improved. Diagnosis felt to be TIA, possibly shunt malfunction. Neurology was consulted. PT/OT/ST. Patient was continued on aspirin. Carotid artery ultrasound and echocardiogram were unremarkable. Patient was cleared for discharge by neurology. Is felt to be stable to return home with home health physical therapy. Pt Condition on Discharge: Stable Discharge Disposition: Disch w/ Home Health Serv Discharge Time: > 30 minutes Discharge Instructions DIET: Follow Instructions for: Heart Healthy Diet Activities you can perform: Regular-No Restrictions Other Activity Instructions: With assistance Follow up Referrals: Neurology - 1 Week with Mayda Das MD PCP Follow-up - 1 Week New Medications: Aspirin (Aspirin Low Strength) 81 Mg Chew 81 MG PO DAILY for Blood Clot Prevention for 30 Days, #30 EA Atorvastatin (Lipitor) 10 Mg Tab 10 MG PO HS for Cholesterol Management for 30 Days, #30 TAB Continued Medications: Gabapentin (Gabapentin) 600 Mg Tab 600 MG PO BID, #60 TAB 0 Refills Risedronate (Risedronate) 150 Mg Tab 150 MG PO Q30D for Manage Osteoporosis, #1 TAB 0 Refills [Eye Drops] () 1 DROP RIGHT EYE DAILY Brian Mandujano MD Aug 29, 2017 15:54
== END 2017-08-29 16:21 | disposition home health service (06) | DRG 69 ==
LOC: NEPE 13:03 → NEDA 14:40 → N05A 16:59
PROVIDERS: ADMIT Family Medicine; ATTEND Family Medicine
DX: G45.9 Transient cerebral ischemic attack, unspecified (principal); G91.2 (Idiopathic) normal pressure hydrocephalus; F03.90 Unspecified dementia, unspecified severity, without behavioral disturbance, psychotic disturbance, mood disturbance, and anxiety; Z98.2 Presence of cerebrospinal fluid drainage device; I10 Essential (primary) hypertension; N40.0 Benign prostatic hyperplasia without lower urinary tract symptoms; M81.0 Age-related osteoporosis without current pathological fracture; R32 Unspecified urinary incontinence; G62.9 Polyneuropathy, unspecified; Z96.651 Presence of right artificial knee joint; Z87.891 Personal history of nicotine dependence
CPT/HCPCS: 70450; 71010; 80048; 80053; 80061; 81001; 82435; 82565; 82947; 82948; 83036; 84132; 84295; 84443; 84484; 84520; 85025; 85610; 85730; 93005; 93306; 93880; 94150; J1650; J7030